=== PATIENT | female | born 1970 | race Caucasian/White ===

== ENCOUNTER → 2017-02-18 | Outpatient (CLI) | payer OTHER ==
--- NOTE | 2017-02-18 17:00 | Diagnostic Imaging Report ---
INDICATION: Pelvic pain. EXAMINATION: Pelvic ultrasound. FINDINGS: The uterus measures 8.4 x 4.8 x 4.5 cm. The endometrium is 5 mm. The myometrium and endometrium appear normal. The ovaries are both seen and appear normal in size with normal blood flow. There is no adnexal mass. There is no free fluid. IMPRESSION: Negative pelvic sonogram. Dictated by: Dictated on workstation # [id number]
== END ==
LOC: RAD 15:53
PROVIDERS: ATTEND Obstetrics & Gynecology
DX: R10.2 Pelvic and perineal pain (principal)
CPT/HCPCS: 76830; 76856

== ENCOUNTER → 2017-09-16 | Outpatient (CLI) | payer OTHER ==
--- NOTE | 2017-09-16 15:39 | Diagnostic Imaging Report ---
Transabdominal and transvaginal pelvic ultrasound. INDICATION: Pelvic tenderness. The patient has an IUD. Post coitus bleeding. FINDINGS: The uterus is 8.1 x 5.1 x 4.6 cm in size. The endometrial stripe is 8 mm in thickness. There is an IUD which appears to be in good position. The myometrium is slightly heterogeneous with no discrete mass. The left ovary is 4.5 x 3.8 x 3 cm. There is a left ovarian complex lesion which is mostly cystic and has internal septations without solid nodule or internal vascularity demonstrated. It measures 3.5 x 3.2 x 2.3 cm. There are arterial waveforms demonstrated in the ovarian tissue around it. The right ovary is not seen, probably obscured by bowel gas. The urinary bladder appears unremarkable. IMPRESSION: 3.5 cm left adnexal complex lesion is probably a complicated cyst with thin septations seen. A six-week follow-up ultrasound to ensure stability or resolution is recommended. The right ovary is not seen. Dictated by: Dictated on workstation # [id number]
== END ==
LOC: RAD 10:50
PROVIDERS: ATTEND Nurse Practitioner Family
DX: R19.09 Other intra-abdominal and pelvic swelling, mass and lump (principal); Z97.5 Presence of (intrauterine) contraceptive device
CPT/HCPCS: 76830; 76856

== ENCOUNTER → 2018-03-15 | Outpatient (CLI) | payer OTHER ==
--- NOTE | 2018-03-15 09:50 | Diagnostic Imaging Report ---
INDICATION: Routine screening. Comparison is made with prior study from 10/22/2016 and 06/29/2015. The current study was also evaluated with a Computer Aided Detection (CAD) system. FINDINGS: Both breasts are heterogeneously dense, limiting the sensitivity of mammography. No mass or malignant appearing microcalcifications are seen. The axillae are unremarkable. IMPRESSION: No mammographic features suspicious for malignancy are identified. ACR BI-RADS Category 1: Negative. Result letter will be mailed to the patient. Note: At least 10% of breast cancer is not imaged by mammography. Dictated by: Dictated on workstation # [id number]
== END ==
LOC: RAD 07:48
PROVIDERS: ATTEND Nurse Practitioner Family
DX: Z12.31 Encounter for screening mammogram for malignant neoplasm of breast (principal)
CPT/HCPCS: 77067

== ENCOUNTER → 2019-04-29 | Outpatient (CLI) | payer OTHER ==
--- NOTE | 2019-05-02 08:50 | Diagnostic Imaging Report ---
INDICATION: Routine screening. Comparison is made with prior mammogram from 03/15/2018 and 10/22/2016. 2-D and 3-D bilateral screening mammography was performed with CAD. The current study was also evaluated with a Computer Aided Detection (CAD) system. 3-D tomosynthesis was also performed and reviewed. FINDINGS: Both breasts are heterogeneously dense, limiting the sensitivity of mammography. The parenchymal pattern is stable. No mass or malignant-appearing microcalcifications are seen. Occasional benign calcifications are noted. Axillae are unremarkable. IMPRESSION: No mammographic features suspicious for malignancy are identified. ACR BI-RADS Category 2: Benign findings. Result letter will be mailed to the patient. Note: At least 10% of breast cancer is not imaged by mammography. Dictated by: Dictated on workstation # [id number]
== END ==
LOC: RAD 15:03
PROVIDERS: ATTEND Nurse Practitioner
DX: Z12.31 Encounter for screening mammogram for malignant neoplasm of breast (principal); Z01.419 Encounter for gynecological examination (general) (routine) without abnormal findings; Z87.42 Personal history of other diseases of the female genital tract
CPT/HCPCS: 77067

== ENCOUNTER → 2020-09-06 | Outpatient (CLI) | payer OTHER ==
--- NOTE | 2020-09-06 09:22 | Diagnostic Imaging Report ---
PROCEDURE: US Gallbladder. TECHNIQUE: Multiple real-time grayscale images were obtained over the right upper quadrant in various projections. INDICATION: Right upper quadrant pain with nausea and vomiting. Liver is normal in size at 15 cm. No discrete liver mass is detected. The portal vein is patent and shows normal direction of flow. Gallbladder is without stones or sludge. No wall thickening or biliary ductal dilatation is seen. The pancreas unremarkable. Aorta is nonaneurysmal. The IVC is patent. Right kidney is without evidence of calculi or hydronephrosis. There is no ascites. IMPRESSION: No evidence of cholelithiasis or acute cholecystitis. Dictated by: Dictated on workstation # [id number]
== END ==
LOC: RAD 08:00
PROVIDERS: ATTEND Surgery
DX: R10.11 Right upper quadrant pain (principal); R11.2 Nausea with vomiting, unspecified
CPT/HCPCS: 76705

== ENCOUNTER → 2020-09-17 | Outpatient (CLI) | payer OTHER ==
--- NOTE | 2020-09-17 20:27 | Diagnostic Imaging Report ---
INDICATION: Digital mammogram bilateral screening. This study was compared to the prior exam of 04/29/2019, 03/15/2018 and 10/22/2016. At this time, there are no current complaints. The current study was also evaluated with a Computer Aided Detection (CAD) system. FINDINGS: The fibroglandular tissue in both breasts is heterogeneously dense. This does limit the sensitivity of this exam. Overall, there does not appear to have been any significant change when compared to the prior study. No primary or secondary sign of malignancy is noted. IMPRESSION: There is no radiographic evidence for malignancy. ACR BI-RADS Category 1: Negative. Result letter will be mailed to the patient. Note: At least 10% of breast cancer is not imaged by mammography. Dictated by: Dictated on workstation # [id number]
== END ==
LOC: RAD 09:15
PROVIDERS: ATTEND Family Medicine
DX: Z12.31 Encounter for screening mammogram for malignant neoplasm of breast (principal)
CPT/HCPCS: 77063; 77067

== ENCOUNTER → 2020-09-17 | Outpatient (CLI) | payer OTHER ==
[~2020-09-17] MED LIST: CATHETER FLUSH 10 ML SYR IV PRN
--- NOTE | 2020-09-17 14:06 | Diagnostic Imaging Report ---
Hepatobiliary scan. INDICATION: Abdominal pain The study was performed following administration of 5.4 mCi of Choletec and 8 ounces of ensure. There are no prior nuclear medicine studies available for comparison. The recent gallbladder ultrasound exam of 09/06/2020 failed to show any sign of acute cholecystitis. On this exam there is uptake of the radiotracer by the gallbladder by 35 minutes. Usually there is uptake by 30 minutes. The slight delay in the uptake of the radiotracer by the gallbladder does raise the question of mild chronic cholecystitis. There is extension of radiotracer into the small bowel indicating that the common bile duct is not obstructed. The ejection fraction is 78.4% (normal greater than 35%). IMPRESSION: 1. There is slight delay in the uptake of radiotracer by the gallbladder. This finding is nonspecific but may be related to mild chronic cholecystitis. 2. There is no evidence for obstruction of the common bile duct. 3. The ejection fraction is 78.4% well within normal limits. Dictated by: Dictated on workstation # [id number]
== END ==
LOC: CARD 09:08
PROVIDERS: ATTEND Surgery
DX: R10.11 Right upper quadrant pain (principal)
CPT/HCPCS: 78227; A9537

== ENCOUNTER 2020-09-24 05:38 | Outpatient (RCR) | payer OTHER ==
[~2020-09-24] VITALS: Ht 165.1 cm; Wt 69.1 kg
[~2020-09-24 05:38] MED LIST changes: +ALPR0.5T PO; +BACI1TAB3 PO; -CATHETER FLUSH 10 ML SYR IV PRN; +LEVO100T7 PO; +LORA10TA7 PO
== END 2020-09-24 09:55 | disposition home or self-care (01) ==
LOC: PREOP 05:38
PROVIDERS: ATTEND Surgery
DX: Z01.812 Encounter for preprocedural laboratory examination (principal); Z20.828 Contact with and (suspected) exposure to other viral communicable diseases
CPT/HCPCS: 87635

== ENCOUNTER 2020-09-27 08:17 | Day surgery (SDC) | payer OTHER ==
[~2020-09-27] VITALS: Ht 165.1 cm; Wt 69.1 kg
[2020-09-27] VITALS (10 sets, daily range): BP systolic 86–112; BP diastolic 42–77
[2020-09-27] MEDS ORDERED: ceFAZolin 2 GM IV Premixed 50 ML IV ONE (08:30)
--- NOTE | 2020-09-27 08:38 | Progress Note-Pre Operative ---
Pre-Operative Progress Note H&P Reviewed The H&P was reviewed, patient examined and no changes noted. Date Seen by Provider: Sep 27, 2020 Time Seen by Provider: 08:35 Date H&P Reviewed: Sep 27, 2020 Time H&P Reviewed: 08:30 Pre-Operative Diagnosis: Chronic acalculous cholecystitis, rectal bleeding, reflux JOSE RIVERA APRN Sep 27, 2020 08:38
[2020-09-27] MEDS ORDERED: GLYCOPYRROLATE 0.2 MG/ML (ROBINUL) 2 ML VIAL ONE ×2 (08:40→10:23)
[2020-09-27] MEDS ORDERED: LIDOCAINE PF 2% 5 ML (XYLOCAINE) VIAL ONE (08:40)
[2020-09-27] MEDS ORDERED: HYDR-4227 PO (08:40)
[2020-09-27] MEDS ORDERED: SEVOFLURANE (ULTANE) 15 ML INHAL SOLN ONE ×6 (08:40→11:25)
[2020-09-27] MEDS ORDERED: ONDANSETRON 4 MG/2 ML (SDV) Z0FRAN ONE (08:40)
[2020-09-27] MEDS ORDERED: NEOSTIGMINE 3 MG/3 ML VIAL ONE (08:40)
[2020-09-27] MEDS ORDERED: proPOfol 200 MG/20 ML (DIPRIVAN) VIAL IV ONE (08:40)
[2020-09-27] MEDS ORDERED: MIDAZOLAM 2 MG/2 ML (VERSED) VIAL ONE (08:41)
[2020-09-27] MEDS ORDERED: fentaNYL INJECTION 100 MCG/2 ML AMP ONE (08:41)
[2020-09-27] MEDS ORDERED: ROCURONIUM 10 MG/ML 5 ML SYRINGE IV ONE (08:41)
--- NOTE | 2020-09-27 08:41 | Discharge Inst-Surgical ---
D/C Lap Instructions-KIDO Reconcile Patient Problems Problems Reviewed?: Yes New, Converted, or Re-Newed RX: RX on Chart Follow Up Appt in 2 weeks Activity as tolerated No driving for 24 hours No driving while on pain medications Incentive Spirometry use every 2 hours while awake Regular Diet High Fiber Diet 25g or more per day Avoid Alcohol, Caffeine, Spicy [place] and Acid foods. Drink 64 fluid oz or more of fluids per day. Symptoms to Report: Fever over 101 degree F, Nausea/Vomiting Infection Signs and Symptoms to report: Increased redness, Foul odor of wound, Increased drainage Bathing instructions: May shower Operative Area Clean/Dry; Keep incision clean/dry JOSE RIVERA APRN Sep 27, 2020 08:41
[2020-09-27] MEDS ORDERED: ONDANSETRON 4 MG/2 ML (SDV) Z0FRAN IVP PRN ×2 (08:45→11:45)
[2020-09-27] MEDS ORDERED: CATHETER FLUSH 10 ML SYR IV PRN (08:45)
[2020-09-27] MEDS ORDERED: ACETAMINOPHEN 325 MG TABLET PO PRN (08:45)
[2020-09-27] MEDS ORDERED: HYDROcodone/APAP 5 MG/325 MG (LORTAB) TAB PO ONE (08:45)
[2020-09-27] MEDS ORDERED: morphine INJ 10 MG/ML 1ML (SYR OR VIAL) IVP PRN (08:45)
[2020-09-27] MEDS: LACTATED RINGERS 1,000 ML IV PRN ×2 (08:51→10:58)
[2020-09-27] MEDS ORDERED: BUPIVACAINE 0.5% 30 ML (SENSORCAINE) VIAL ONE (09:06)
[2020-09-27] MEDS ORDERED: LIDOCAINE/EPI 1%-1:200,000 (XYLOCAINE) 30 ML VIAL ONE (09:43)
[2020-09-27] MEDS ORDERED: TRAM50TA3 PO (09:54)
--- NOTE | 2020-09-27 11:24 | Progress Note-Post Operative ---
Post-Operative Progess Note Surgeon (s)/Thermocouple Tester (s) Surgeon Dr. Grabiel Garcia M.D. Thermocouple Tester: Sam Rivera APRN Pre-Operative Diagnosis Chronic acalculous cholecystitis, rectal bleeding, reflux Post-Operative Diagnosis Biliary dyskinesia, Reflux esophagitis stage II, Small Hiatal hernia 1.5 cm in size, moderate gastritis, mild distal esophageal stricture, chronic stage II external and internal hemorrhoids, moderate sigmoid diverticulosis Procedure & Operative Findings Date of Procedure 09/27/20 Procedure Performed/Findings Laparoscopic cholecystectomy, EGD with balloon dilatation and biopsy, colonoscopy Anesthesia Type GET Estimated Blood Loss Estimated blood loss (mL): Minimal Specimens/Packing Specimens Removed 1) Gallbladder 2) Antrum 3) GE junction SAM RIVERA APRN Sep 27, 2020 11:24
[2020-09-27] MEDS ORDERED: HYDROmorphone 2 MG/ML VIAL (DILAUDID) ONE (11:38)
[2020-09-27] MEDS ORDERED: HYDROmorphone 2 MG/ML VIAL (DILAUDID) IV ONE (11:45)
--- NOTE | 2020-09-27 15:56 | OPERATIVE REPORT ---
DATE OF SERVICE: 09/27/2020 ATTENDING PRIMARY CARE PHYSICIAN: PREOPERATIVE DIAGNOSES: Dysphagia, reflux regurgitation, nausea, right upper abdominal quadrant pain, biliary dyskinesia. POSTOPERATIVE DIAGNOSES: Biliary dyskinesia, reflux esophagitis stage II, mild distal esophageal stricture versus achalasia, small hiatal hernia approximately 1.5 cm in size, moderate gastritis. No distal obstructions. Chronic stage II external and internal hemorrhoids, moderate sigmoid diverticulosis. PROCEDURE: Laparoscopic cholecystectomy, EGD with biopsy and balloon dilatation, colonoscopy. SURGEON: Мария Woo MD. HOLD WORKER: Sam Soliz APRN. ANESTHESIA: General endotracheal. ESTIMATED BLOOD LOSS: Minimal. FINDINGS: Biliary dyskinesia, reflux esophagitis stage II, mild distal esophageal stricture versus achalasia, small hiatal hernia approximately 1.5 cm in size, moderate gastritis. No distal obstructions. Chronic stage II external and internal hemorrhoids, moderate sigmoid diverticulosis. DISPOSITION: The patient tolerated the procedure well. INDICATIONS: The patient is a 49-year-old female, who has had issues with epigastric right upper abdominal as well as back pain for the past few years, which was initially mild; however, has become more significant in recent months. She states that after eating things that are greasy, this tends to be worse. She underwent an ultrasound, which did not show any gallstones and then this was followed by a HIDA scan, which showed a normal ejection fraction; however, there was very slow uptake of contrast into the gallbladder, likely consistent with an acalculous cholecystitis versus biliary dyskinesia. She also has had issues with gastroesophageal reflux disease as well as dysphagia. She reports a substernal pressure sensation after a food or liquid bolus at time and then we will also have episodes of regurgitation. She was placed on omeprazole recently. DESCRIPTION OF PROCEDURE: The patient was brought to the operating room, laid supine on the table. After adequate IV pain and sedative medications and general endotracheal intubation, the abdomen was prepped and draped in standard surgical fashion. A 0.5% Marcaine with epinephrine was used to anesthetize overlying skin in the left upper abdominal quadrant and a transverse skin incision made using 15 blade. An 0 silk suture was applied to the medial aspect incision for retraction and a Veress needle inserted with low opening pressure of 0 mmHg. The abdomen was insufflated to 15 mmHg pressure. The Veress needle removed and a 5 mm XL trocar placed followed by a 5 mm 45-degree angle laparoscope visualizing the peritoneal cavity. A 4-quadrant abdominal exploration was performed. There were omental adhesions towards the fundus of the gallbladder was visualized the stomach, liver, omentum appeared normal. Under direct visualization, we then proceeded to place a supraumbilical 10 mm port after the skin and peritoneal lining were anesthetized using 0.5% Marcaine with epinephrine and a transverse skin incision made using 15 blade. In a similar manner, a right upper abdominal quadrant 5 mm port was placed. The fundus of the gallbladder was then retracted anteriorly and superiorly and the patient was then placed in reverse Trendelenburg position as well as plane right side up, left side down. The omental adhesions were taken down using blunt dissection as well as electrocautery on hook instrument. The hepatoduodenal ligament was then opened with blunt dissection as well as cautery on the hook instrument and the entire critical view of safety was identified including the triangle of Calot as well as the cystic duct and artery as only two structures going into the gallbladder as well as the cystic plate behind the proximal gallbladder. A timeout was then taken and the cystic duct and artery were then clipped proximally, distally and cut with EndoShears. The gallbladder was dissected off the liver bed using electrocautery using a hook instrument with visualization of good hemostasis as well as no leaking ducts of Luschka. The gallbladder was removed through the 10 mm port site using an EndoCatch bag. The 10 mm port site fascia and peritoneum were then closed under direct visualization using a Parish-Estevan device and 0 Vicryl suture. The abdomen was desufflated and remaining ports removed. All skin incisions were closed using 4-0 Monocryl running subcuticular sutures. Wounds were then cleaned and covered with Dermabond. Under the same anesthesia, we then proceeded with the EGD portion of procedure. A mouthpiece was applied. The endoscope was placed in the mouth, visualizing the pharynx and hypopharyngeal region. Vocal cords, epiglottis and vallecula identified and appeared to be normal. The endoscope was gently intubated into the esophageal opening and esophagus insufflated. The endoscope was then advanced in the first, second and third portion of the esophagus at the level of the GE junction, a reflux esophagitis stage II identified as well as a mild distal esophageal stricture versus increased hypertonicity of the lower esophageal sphincter tone, which may indicate some level of achalasia. A biopsy was taken to the GE junction with forceps with visualization of good hemostasis. The endoscope was then advanced in the stomach and endoscope retroflexed, visualizing a small hiatal hernia approximately 1.5 cm in size. There was a moderate severity gastritis. No formal ulcerations, polyps, or any neoplasms. A biopsy was taken of the antrum to rule out H. pylori with visualization of good hemostasis. The endoscope was then advanced to the pylorus and the first and second portion of the duodenum, which appeared normal with no distal obstructions. We then proceeded with balloon dilatation of the stricture versus achalasia. The balloon was placed in the stomach and pulled back to the area of the stricture and insufflated 2, 4, then 6 atmospheres of pressure with moderate resistance. This was 20 mm in luminal diameter. This was left in place for 60 seconds and the balloon was then desufflated and removed with visualization of good hemostasis as well as no mucosal tears. Endoscope was then slowly withdrawn while taking a second look and suctioning residual air with no additional findings. Under the same anesthesia, we then proceeded with colonoscopy portion of the procedure and the patient was placed in frog leg position and a digital rectal examination was performed, which revealed chronic stage II external and internal hemorrhoids, not actively edematous nor inflamed and no bleeding. Normal sphincter tone was felt and there were no palpable masses. The endoscope was then intubated and anus and rectum gently insufflated. The endoscope was then advanced to the valves of William of the rectum with no polyps or any neoplasms identified. Through the sigmoid colon, a moderate sigmoid diverticulosis identified. There were no signs of inflammation to indicate any diverticulitis as well as no bleeding. The endoscope was then advanced to the remainder of the descending, transverse and ascending colon to the cecum. These segments were normal. No polyps or any neoplasms identified. The endoscope was then slowly withdrawn while taking a second look and suctioning of residual air with no additional findings. The patient tolerated the procedure well. We will start IV normal pain medication as well as a clear liquid diet. When she is tolerating clears, has good pain control with oral pain medications, ambulating well, we will discharge her home. For her reflux, hiatal hernia, gastritis and distal esophageal stricture versus achalasia, we will recommend the necessary lifestyle and diet accommodation including small and more frequent meals, avoidance of eating at night as well as head elevation while lying supine. We will also recommend avoidance of caffeinated beverages, spicy, greasy and acidic foods. We will also start her on Protonix 40 mg daily. We will also recommend a high fiber diet with at least 25 grams of fiber daily as well as significant amounts of water to promote soft stools on daily basis to prevent further propagation of diverticulosis as well as the associated complications related to them. Job ID: [id number] DocumentID: [id number] Dictated Date: 09/27/2020 11:37:29 Nuclear Medicine Chief Technologist Date: 09/27/2020 15:56:08 Dictated By: МАРИЯ WOO MD MTDD
--- NOTE | 2020-09-28 08:16 | Anesthesia-General Post-Op ---
General Patient Condition Mental Status/LOC: Same as Preop Cardiovascular: Satisfactory Nausea/Vomiting: Absent Respiratory: Satisfactory Pain: Controlled Complications: Absent Post Op Complications Complications None Follow Up Care/Instructions Patient Instructions None needed. Anesthesia/Patient Condition Patient Condition Patient is doing well, no complaints, stable vital signs, no apparent adverse anesthesia problems. No complications reported per nursing. [place] [facility] [place]: Yes YARA ALDRIDGE CRNA Sep 28, 2020 08:16
== END 2020-09-27 13:55 | disposition home or self-care (01) ==
LOC: SDC 08:17
PROVIDERS: ATTEND Surgery
DX: K81.1 Chronic cholecystitis (principal); K82.8 Other specified diseases of gallbladder; K21.00 Gastro-esophageal reflux disease with esophagitis, without bleeding; K29.50 Unspecified chronic gastritis without bleeding; K44.9 Diaphragmatic hernia without obstruction or gangrene; K57.30 Diverticulosis of large intestine without perforation or abscess without bleeding; K64.1 Second degree hemorrhoids; Z79.899 Other long term (current) drug therapy; Z87.891 Personal history of nicotine dependence; Z80.0 Family history of malignant neoplasm of digestive organs; Z11.2 Encounter for screening for other bacterial diseases
CPT/HCPCS: 84703; 87081; 88304; 88305

== ENCOUNTER → 2021-05-14 | Outpatient (CLI) | payer OTHER ==
[~2021-05-14] MED LIST changes: +HYDR-4227 PO; +TRAM50TA3 PO
--- NOTE | 2021-05-14 09:40 | Diagnostic Imaging Report ---
PROCEDURE: Ultrasound abdomen complete. TECHNIQUE: Multiple real-time grayscale images were obtained of the abdomen in various projections. INDICATION: Epigastric and periumbilical pain. COMPARISON: Gallbladder ultrasound of 09/06/2020 FINDINGS: The liver measures 15 cm. It has normal echogenicity and is without focal mass. The portal vein is patent with normal direction of flow. Cholecystectomy. The common bile duct measures up to 0.3 cm cm in diameter. No intrahepatic biliary dilation. Pancreas is normal in appearance were visualized. The kidneys are normal in size. No hydronephrosis, shadowing calculi, or suspicious mass lesion. The spleen is normal in size measuring 9 cm. There is no focal splenic mass. The aorta and IVC are normal in caliber where seen. IMPRESSION: 1. Cholecystectomy. 2. Otherwise, normal abdominal ultrasound. Dictated by: Dictated on workstation # [id number]
== END ==
LOC: RAD 06:43
PROVIDERS: ATTEND Family Medicine
DX: R10.13 Epigastric pain (principal); R10.33 Periumbilical pain; Z90.49 Acquired absence of other specified parts of digestive tract
CPT/HCPCS: 76700

== ENCOUNTER → 2021-11-19 | Outpatient (CLI) | payer OTHER ==
--- NOTE | 2021-11-19 12:55 | Diagnostic Imaging Report ---
INDICATION: Routine screening. COMPARISON: 09/17/2020 and 04/29/2019. TECHNIQUE: 2D and 3D bilateral screening mammography was performed with CAD. FINDINGS: Both breasts are heterogeneously dense, limiting the sensitivity of mammography. There are benign calcifications. No mass or malignant-appearing microcalcifications are seen. The axillae are unremarkable. IMPRESSION: No mammographic features suspicious for malignancy are identified. ACR BI-RADS Category 2: Benign findings. Result letter will be mailed to the patient. Note: At least 10% of breast cancer is not imaged by mammography. Dictated by: Dictated on workstation # [id number]
== END ==
LOC: RAD 08:45
PROVIDERS: ATTEND Nurse Practitioner
DX: Z12.31 Encounter for screening mammogram for malignant neoplasm of breast (principal)
CPT/HCPCS: 77063; 77067